=== PATIENT | female | born 1965 | race Caucasian/White ===

== ENCOUNTER 2019-02-05 04:48 | Inpatient (IN) | payer OTHER ==
[~2019-02-05] VITALS: Ht 157.5 cm; Wt 87.1 kg
== END 2019-02-06 19:15 | disposition home or self-care (01) | DRG 392 ==
LOC: ER 04:48 → MEDJ 12:28 → MEDI 12:28
PROVIDERS: ADMIT Internal Medicine
PROC: BW21ZZZ Computerized Tomography (CT Scan) of Abdomen and Pelvis (ICD-10-PCS; principal; 2019-02-05)
PROC: BW21Y0Z Computerized Tomography (CT Scan) of Abdomen and Pelvis using Other Contrast, Unenhanced and Enhanced (ICD-10-PCS; 2019-02-05)
DX: K57.20 Diverticulitis of large intestine with perforation and abscess without bleeding (principal); I10 Essential (primary) hypertension